=== PATIENT | female | born 1995 | race Hispanic/Latino ===

== ENCOUNTER → 2021-06-15 | Outpatient (CLI) | payer OTHER ==
--- NOTE | 2021-06-18 07:46 | REP ---
INDICATION: B/L BREAST. COMPARISON: None TECHNIQUE: Real-time sonographic evaluation of entire bilateral breasts performed. FINDINGS: The patient complains of burning throughout the right breast. There is a palpable lump in the left retroareolar region which reportedly has been stable since age 9. Ultrasound is performed due to the patient's age. Ultrasound of the right breast demonstrates no cystic or solid nodule. Ultrasound of the left breast demonstrates a cystic structure in the retroareolar region at the site of the palpable lump, measuring 5 mm in diameter. There is increased through transmission. There is a thin internal septation with mild low-level echoes. This has a benign appearance. With elastography interrogation, average KP a value is 13.0. No other cystic or solid nodule is seen in the left breast. IMPRESSION: BIRADS/ACR category 2, benign. No cystic or solid nodule seen in the right breast. At the site of the palpable lump in the retroareolar region of the left breast there is a 5 mm slightly complex cyst which has a benign appearance. RECOMMENDATION: Clinical correlation and follow-up. <Electronically signed by Edilberto Payne > 06/15/21 [id number]
== END ==
LOC: M WHC 11:24
PROVIDERS: ATTEND Family Medicine
DX: N60.02 Solitary cyst of left breast (principal); N64.4 Mastodynia

== ENCOUNTER 2022-01-28 20:51 | Outpatient (CLI) | payer OTHER ==
[~2022-01-28] VITALS: Ht 157.5 cm; Wt 98.9 kg
[2022-01-28 21:06] VITALS: BP 140/83
[2022-01-28] MEDS ORDERED: CALC600T61 PO (21:13)
[2022-01-28] MEDS ORDERED: IRON27TA2 PO (21:13)
[2022-01-28] MEDS ORDERED: PRENTAB9 PO (21:13)
[2022-01-28] MEDS ORDERED: IRON325T2 PO (21:14)
[2022-01-28] MEDS ORDERED: LR 1,000 ML IV ONE (21:50)
[2022-01-28] MEDS ORDERED: LR 1,000 ML IV SCH (21:50)
[2022-01-28 22:12] LABS: APPEARANCE, URINE HAZY (CLEAR); BACTERIA, URINE AUTO NEGATIVE (NEGATIVE); BILIRUBIN, URINE AUTO NEGATIVE (NEGATIVE); BLOOD, URINE BLOOD NEGATIVE (NEGATIVE); COLOR, URINE YELLOW (YELLOW); GLUCOSE, URINE (UA) AUTO NEGATIVE (NEGATIVE); KETONE, URINE AUTO NEGATIVE (NEGATIVE); LEUKOCYTE ESTERASE, URINE AUTO 3+ (NEGATIVE); MUCUS, URINE SMALL (NEGATIVE); NITRITE, URINE AUTO NEGATIVE (NEGATIVE); PROTEIN, URINE AUTO NEGATIVE (NEGATIVE); RBC, URINE AUTO 0 /HPF (0-3); SPECIFIC GRAVITY URINE AUTO 1.017 (1.002-1.035); SQUAMOUS EPITHELIAL CELL UR AU 9 /HPF (0-6); UROBILINOGEN, URINE AUTO 0.2 mg/dL (0.0-2.0); WBC, URINE AUTO 2 /HPF (0-3)
[2022-01-29] MEDS ORDERED: TERBUTALINE SULFATE 1 MG/ML VIAL (J3105) SC STA (00:15)
== END 2022-01-29 02:07 | disposition home or self-care (01) ==
LOC: M LDO 20:51
PROVIDERS: ATTEND Obstetrics & Gynecology
DX: O47.03 False labor before 37 completed weeks of gestation, third trimester (principal); Z3A.36 36 weeks gestation of pregnancy; O34.211 Maternal care for low transverse scar from previous cesarean delivery; O99.013 Anemia complicating pregnancy, third trimester; D64.9 Anemia, unspecified; O99.513 Diseases of the respiratory system complicating pregnancy, third trimester; J45.909 Unspecified asthma, uncomplicated
CPT/HCPCS: 59025; 81001; 96360; G0378; G0463; J3105

== ENCOUNTER 2022-02-07 06:58 | Inpatient (IN) | payer OTHER ==
[~2022-02-07] VITALS: Ht 157.5 cm; Wt 99.1 kg
[2022-02-07] VITALS (9 sets, daily range): BP systolic 95–126; BP diastolic 51–62
[~2022-02-07 06:58] MED LIST: CALC600T61 PO; IRON27TA2 PO; IRON325T2 PO; PRENTAB9 PO
[2022-02-07] MEDS ORDERED: MORPHINE PRES-FREE INJ 10 MG/10 ML VIAL ONE (07:15)
[2022-02-07] MEDS ORDERED: LACTATED RINGER'S 1000 ML IV STA ×2 (07:36)
[2022-02-07] MEDS ORDERED: BICITRA 30ML SOLN UDC PO ONE (07:40)
[2022-02-07 07:56] LABS: HEMATOCRIT 34.7 % (36.0-47.0); HEMOGLOBIN 11.5 g/dl (12.0-15.5); MEAN CORPUSCULAR HEMOGLOBIN 28.8 pg (27.0-33.0); MEAN CORPUSCULAR HGB CONC 33.1 g/dl (32.0-36.5); MEAN CORPUSCULAR VOLUME 86.8 fl (80.0-96.0); PLATELET COUNT, AUTOMATED 189 10^3/uL (150-450); WHITE BLOOD COUNT 11.1 10^3/uL (4.0-10.0)
[2022-02-07] MEDS ORDERED: ceFAZolin SOD 2 GM in IV 1 EA IV ONE (08:00)
[2022-02-07] MEDS ORDERED: LR 500 ML IV ONE (08:00)
[2022-02-07] MEDS ORDERED: TUMSCHW16 PO (08:19)
[2022-02-07] MEDS ORDERED: HOME MED LIST COMPLETE! XX SCH (08:20)
[2022-02-07] MEDS: PRENATAL VITAMINS CHEWABLE TABLET PO SCH (09:00)
[2022-02-07] MEDS: LR 1,000 ML IV SCH ×3 (09:00→23:09)
[2022-02-07] MEDS ORDERED: BUPIVACAINE HCL 0.25% 10ML VIAL SC ONE (09:45)
[2022-02-07] MEDS ORDERED: ONDANSETRON 4MG 2ML VIAL ONE (09:58)
[2022-02-07] MEDS ORDERED: ATROPINE SULF 0.4 MG/ML 1ML VIAL (J0461) ONE (09:59)
[2022-02-07] MEDS ORDERED: PHENYLephrine 500MCG 5ML (100MCG/ML) SYRINGE ONE (10:05)
[2022-02-07] MEDS ORDERED: ePHEDrine SULFATE 25 MG/5 ML(5MG/ML) SYRINGE ONE ×2 (10:05)
[2022-02-07 10:31] LABS: CORD GAS ABE A -4.2; CORD GAS HCO3 A 20.6 MEQ/L; CORD GAS O2 SAT A 81.5 %; CORD GAS PCO2 A 37.2 mmHg; CORD GAS PH A 7.361 UNITS; CORD GAS SBC A 20.6 MEQ/L; CORD GAS TCO2 A 21.7 MEQ/L
[2022-02-07 10:42] LABS: CORD GAS ABE V -2.2; CORD GAS HCO3 V 22.8 MEQ/L; CORD GAS O2 SAT V 71.5 %; CORD GAS PCO2 V 40.1 mmHg; CORD GAS PH V 7.372 UNITS; CORD GAS PO2 V 28.2 mmHg; CORD GAS SBC V 21.9 MEQ/L
[2022-02-07] MEDS: KETOROLAC 30 MG/ML 1ML VIAL IV SCH ×3 (11:21→23:44)
[2022-02-07] MEDS ORDERED: KETOROLAC 60MG 2ML VIAL ONE (11:23)
[2022-02-07] MEDS ORDERED: OXYTOCIN 30 UNITS IN 0.9% NaCl 500ML IV BAG (J2590) ONE (11:31)
[2022-02-07] MEDS ORDERED: SIMETHICONE 80MG CHEW TAB PO PRN (11:35)
[2022-02-07] MEDS ORDERED: MOM 30ML SUSPENSION UDC PO PRN (11:35)
[2022-02-07] MEDS ORDERED: oxyCODONE 5MG TAB PO PRN (11:35)
[2022-02-07] MEDS ORDERED: RHOGAM 300 MCG (1500 IU) INJ (J2790) IM SCH (11:35)
[2022-02-07] MEDS ORDERED: OXYTOCIN DRIP 30 UNITS in IV 1 EA IV ONE (11:50)
[2022-02-07] MEDS ORDERED: **NOTE PATIENT COMMENT** MISC XX SCH (12:30)
[2022-02-07] MEDS ORDERED: diphenhydrAMINE 50MG/ML VIAL (J1200) IV PRN (12:30)
[2022-02-07] MEDS ORDERED: fentaNYL 100 MCG/2 ML INJECTION IV PRN (12:30)
[2022-02-07] MEDS: SLF 3 ML SYR IV SCH ×2 (12:30→20:30)
[2022-02-07] MEDS ORDERED: NALOXONE INJ 0.4MG/1ML VIAL (J2310 PER 1MG) IV PRN ×2 (12:30)
[2022-02-07] MEDS ORDERED: METOCLOPRAMIDE INJ 10MG/2ML VIAL (J2765 PER 1) IV PRN (12:30)
[2022-02-07] MEDS ORDERED: NORCO, ANEXSIA 5/325MG TABLET (HYDROcodone/ACETAMINOPHEN) PO PRN (12:30)
[2022-02-07] MEDS ORDERED: LR 1,000 ML IV SCH (12:30)
[2022-02-07] MEDS ORDERED: ONDANSETRON 4MG 2ML VIAL IV PRN ×2 (12:30)
[2022-02-07] MEDS: DOCUSATE SODIUM 100MG CAPSULE PO SCH (20:10)
[2022-02-07] MEDS: oxyCODONE 5MG TAB PO PRN (23:16)
[2022-02-08 02:09] VITALS: BP 123/58
[2022-02-08] MEDS: SLF 3 ML SYR IV SCH (04:30)
[2022-02-08] MEDS: oxyCODONE 5MG TAB PO PRN ×2 (05:04→14:11)
[2022-02-08] MEDS: KETOROLAC 30 MG/ML 1ML VIAL IV SCH (06:15)
[2022-02-08 06:16] VITALS: BP 103/54
[2022-02-08] MEDS: LR 1,000 ML IV SCH (06:16)
[2022-02-08 07:27] LABS: HEMATOCRIT 28.5 % (36.0-47.0); MEAN CORPUSCULAR HGB CONC 31.6 g/dl (32.0-36.5); MEAN CORPUSCULAR VOLUME 88.8 fl (80.0-96.0); PLATELET COUNT, AUTOMATED 152 10^3/uL (150-450); RED BLOOD COUNT 3.21 10^6/uL (4.00-5.40); WHITE BLOOD COUNT 10.7 10^3/uL (4.0-10.0)
[2022-02-08] MEDS: PRENATAL VITAMINS CHEWABLE TABLET PO SCH (09:09)
[2022-02-08] MEDS: DOCUSATE SODIUM 100MG CAPSULE PO SCH ×2 (09:09→21:44)
[2022-02-08 10:15] VITALS: BP 117/57
[2022-02-08 14:00] VITALS: BP 107/56
[2022-02-08] MEDS: IBUPROFEN 800 MG TAB PO SCH ×2 (14:11→21:44)
[2022-02-08 17:23] VITALS: BP 113/61
[2022-02-08 22:00] VITALS: BP 119/56
[2022-02-09] MEDS: oxyCODONE 5MG TAB PO PRN ×2 (01:25→08:50)
[2022-02-09] MEDS: IBUPROFEN 800 MG TAB PO SCH (05:37)
[2022-02-09 05:57] VITALS: BP 119/62
[2022-02-09] MEDS ORDERED: ACET-907 PO (06:00)
[2022-02-09] MEDS ORDERED: COLA100C5 PO (06:00)
[2022-02-09] MEDS ORDERED: OXYC-517 PO (06:00)
[2022-02-09] MEDS ORDERED: IBUP80TA PO (06:00)
[2022-02-09] MEDS: DOCUSATE SODIUM 100MG CAPSULE PO SCH (08:46)
[2022-02-09] MEDS: PRENATAL VITAMINS CHEWABLE TABLET PO SCH (08:46)
[2022-02-09] MEDS ORDERED: MEASLES,MUMPS,RUBELLA VACCINE INJ (MMR-II) (90707) SC.IMMUN ONE (09:00)
[2022-02-09 10:02] VITALS: BP 115/55
== END 2022-02-09 11:30 | disposition home or self-care (01) | DRG 785 ==
LOC: M LDI 06:58 → M OBS 13:40
PROVIDERS: ADMIT Obstetrics & Gynecology; ATTEND Obstetrics & Gynecology
PROC: 0UT70ZZ Resection of Bilateral Fallopian Tubes, Open Approach (ICD-10-PCS; 2022-02-07)
PROC: 10D00Z1 Extraction of Products of Conception, Low, Open Approach (ICD-10-PCS; principal; 2022-02-07 09:30)
DX: O34.211 Maternal care for low transverse scar from previous cesarean delivery (principal); Z3A.39 39 weeks gestation of pregnancy; Z30.2 Encounter for sterilization; Z37.0 Single live birth

== ENCOUNTER 2023-03-28 17:19 | Emergency (ER) | payer OTHER ==
[~2023-03-28] VITALS: Ht 157.5 cm; Wt 86.7 kg
[~2023-03-28 17:19] MED LIST changes: +ACET-907 PO; +COLA100C5 PO; +IBUP80TA PO; +OXYC-517 PO; +TUMSCHW16 PO
[2023-03-28 18:05] LABS: BASO # 0.1 10^3/uL (0.0-0.2); BASO % 0.6 % (0.0-1.0); EOS # 0.2 10^3/uL (0.0-0.5); EOS % 1.6 % (0.0-3.0); HEMATOCRIT 40.2 % (36.0-47.0); HEMOGLOBIN 13.3 g/dl (12.0-15.5); LYMPH # 3.4 10^3/uL (1.5-5.0); LYMPH % 26.2 % (24.0-44.0); MEAN CORPUSCULAR HEMOGLOBIN 28.7 pg (27.0-33.0); MEAN CORPUSCULAR HGB CONC 33.1 g/dl (32.0-36.5); MEAN CORPUSCULAR VOLUME 86.6 fl (80.0-96.0); MONO # 0.9 10^3/uL (0.0-0.8); MONO % 6.5 % (2.0-8.0); NEUTROPHILS # 8.5 10^3/uL (1.5-8.5); NEUTROPHILS % 64.7 % (36.0-66.0); PLATELET COUNT, AUTOMATED 342 10^3/uL (150-450); RED BLOOD COUNT 4.64 10^6/uL (4.00-5.40); WHITE BLOOD COUNT 13.1 10^3/uL (4.0-10.0)
[2023-03-28 18:23] LABS: INR 1.09; PROTHROMBIN TIME 13.8 SECONDS (12.5-14.5)
[2023-03-28 18:36] LABS: LIPASE 33 U/L (12-53)
[2023-03-28 18:38] LABS: ALBUMIN 4.4 G/DL (3.2-5.2); ALKALINE PHOSPHATASE 135 U/L (46-116); ALT/SGPT 30 U/L (7.0-40); AST/SGOT 25 U/L (<34); BILIRUBIN,DIRECT 0.1 MG/DL (<0.4); BILIRUBIN,TOTAL 0.6 MG/DL (0.3-1.2); BLOOD UREA NITROGEN 10 MG/DL (9-23); CALCIUM LEVEL 9.6 MG/DL (8.5-10.1); CARBON DIOXIDE LEVEL 27 MMOL/L (20-31); CHLORIDE LEVEL 103 MMOL/L (98-107); CREATININE FOR GFR 0.64 MG/DL (0.55-1.30); GLOMERULAR FILTRATION RATE > 60.0 (>60); GLUCOSE, FASTING 84 MG/DL (60-100); HCG, SERUM QUALITATIVE NEGATIVE (NEGATIVE); POTASSIUM SERUM 3.8 MMOL/L (3.5-5.1); SODIUM LEVEL 139 MMOL/L (136-145); TOTAL PROTEIN 7.9 G/DL (5.7-8.2)
[2023-03-28] MEDS ORDERED: PANTOPRAZOLE 40MG VIAL IV ONE (18:55)
[2023-03-28] MEDS ORDERED: ISOVUE-370 76% 100ML VIAL As Ordered ONE (19:13)
[2023-03-28] MEDS ORDERED: CARA1TAB6 PO (20:41)
[2023-03-28] MEDS ORDERED: PANT40TA29 PO (20:41)
[2023-03-28 21:03] VITALS: BP 133/78; TEMP 97.3; O2SAT 98
[2023-03-29] MEDS ORDERED: PANT40TA29 PO (13:51)
[2023-03-29] MEDS ORDERED: CARA1TAB6 PO (13:51)
== END 2023-03-28 21:04 | disposition home or self-care (01) ==
LOC: M ED 17:19
DX: K21.9 Gastro-esophageal reflux disease without esophagitis (principal); G43.909 Migraine, unspecified, not intractable, without status migrainosus; J45.909 Unspecified asthma, uncomplicated; Z79.899 Other long term (current) drug therapy
CPT/HCPCS: 74177; 80048; 80076; 83690; 84703; 85025; 85610; 85730; 86850; 86900; 86901; 96374; 99284; C9113; Q9967

== ENCOUNTER 2024-04-28 08:20 | Emergency (ER) | payer OTHER ==
[~2024-04-28] VITALS: Ht 157.5 cm; Wt 76.6 kg
[~2024-04-28 08:20] MED LIST changes: +CARA1TAB6 PO; +PANT40TA29 PO
[2024-04-28] MEDS ORDERED: LOPE-39 PO (08:29)
[2024-04-28 09:31] LABS: HEMATOCRIT 38.9 % (36.0-47.0); MEAN CORPUSCULAR HEMOGLOBIN 28.9 pg (27.0-33.0); MEAN CORPUSCULAR HGB CONC 33.4 g/dl (32.0-36.5); MEAN CORPUSCULAR VOLUME 86.4 fl (80.0-96.0); PLATELET COUNT, AUTOMATED 315 10^3/uL (150-450); WHITE BLOOD COUNT 11.4 10^3/uL (4.0-10.0)
[2024-04-28 09:41] LABS: LIPASE 30 U/L (12-53)
[2024-04-28 09:43] LABS: ALKALINE PHOSPHATASE 96 U/L (46-116); ALT/SGPT 21 U/L (7.0-40); AST/SGOT 19 U/L (<34); BILIRUBIN,DIRECT < 0.1 MG/DL (<0.4); BILIRUBIN,TOTAL 0.2 MG/DL (0.3-1.2); BLOOD UREA NITROGEN 13 MG/DL (9-23); CALCIUM LEVEL 9.7 MG/DL (8.5-10.1); CARBON DIOXIDE LEVEL 26 MMOL/L (20-31); CHLORIDE LEVEL 107 MMOL/L (98-107); CREATININE FOR GFR 0.56 MG/DL (0.55-1.30); GLOMERULAR FILTRATION RATE > 60.0 (>60); GLUCOSE, FASTING 89 MG/DL (60-100); POTASSIUM SERUM 3.8 MMOL/L (3.5-5.1); SODIUM LEVEL 139 MMOL/L (136-145); TOTAL PROTEIN 7.1 G/DL (5.7-8.2)
[2024-04-28 09:52] LABS: HCG, SERUM QUALITATIVE NEGATIVE (NEGATIVE)
[2024-04-28 09:58] LABS: ATYPICAL LYMPH 3 % (0-5); EOSINOPHILS 6 % (0-3); LYMPHOCYTES 41 % (16-44); MONOCYTES 9 % (0-5); NEUTROPHILS 40 % (28-66)
[2024-04-28 09:59] LABS: PLATELET ESTIMATE NORMAL (NORMAL)
[2024-04-28 10:29] VITALS: BP 125/68; TEMP 97.1; O2SAT 100
== END 2024-04-28 10:46 | disposition home or self-care (01) ==
LOC: M ED 08:20
DX: K59.00 Constipation, unspecified (principal); K80.20 Calculus of gallbladder without cholecystitis without obstruction; K62.5 Hemorrhage of anus and rectum; J45.909 Unspecified asthma, uncomplicated